=== PATIENT | female | born 2005 | race Two or more races ===

== ENCOUNTER 2024-11-06 20:43 | Emergency (ER) | payer OTHER, BC, SELFPAY ==
[2024-11-06 20:44] VITALS: BMI 20.5
[2024-11-06 21:13] VITALS: BP 95/76; PULSE 70; RESP 18; TEMP 36.6; O2SAT 98
--- NOTE | 2024-11-06 21:36 | EDNOTE_ITS ---
<Statement entered by Lesli Razo MD - 11/07/24 03:22> As co-signing physician, I was present and available for consult prn. I concur with the plan and care as documented by the midlevel provider. Lower Extremity Injury RME/HPI General Chief Complaint: Extremity Injury, Lower Stated Complaint: LEFT TOE PAIN, POSS INGROWN TOE NAIL Time Seen by Provider: 11/06/24 20:56 Arrival date/time: 11/06/24 20:43 RME / HPI RME / HPI Narrative: 18-year-old female patient came in for evaluation regarding left second toe redness. Patient is having worsening redness and tenderness to the tip of the left second toe, was seen by PCP and was given Keflex for ingrown toenail. According to the patient is not working. Been taking it for few days. Patient also complained of on and off numbness and dusky discoloration of the stools especially with exposure to the cold temperature for several months. Denies any other complaints. No fever was noted patient is ambulatory. Related Data Previous Rx's ?Medication ?Instructions ?Recorded pentoxifylline 400 mg 400 mg PO TID #30 tabs 11/06/24 tablet,extended release sulfamethoxazole 800 1 tab PO BID #14 tabs 11/06/24 mg-trimethoprim 160 mg tablet (Bactrim DS) Allergies Allergy/AdvReac Type Severity Reaction Status Date / Time amoxicillin [From Augmentin] Allergy Mild Rash Verified 11/06/24 20:46 clavulanic acid Allergy Mild Rash Verified 11/06/24 20:46 [From Augmentin] Review of Systems Review of Systems Narrative Review of Systems: Review of system reviewed and within normal limits except mentioned in HPI ED Exam Narrative Physical exam: VITAL SIGNS: Reviewed. GENERAL APPEARANCE: Alert and interactive, follows commands, no acute distress, HEAD AND FACE: Non-traumatic. ENT: PERRL, pink conjunctivitis, eyelid no trauma, Mucous membrane moist. NECK: Supple, nontender, no nuchal rigidity. RECTAL: Deferred. GENITAL: Deferred. NEUROLOGICAL: Gross motor function intact sensory function intact, Appropriate for age. MUSCULOSKELETAL: low back nontender, full range of motion. EXTREMITIES: Redness, ingrown toenail, right second toe.no cyanosis noted, full range of motion. SKIN: Color pink, dry, no rash, no lacerations, no abrasions, no contusions. LYMPHATICS: Deferred. Course Quality Measures none Orders Category Date Time Status Trimethoprim/Sulfa 160/800 Ds [Bactrim Ds] Med 11/06/24 21:32 Discontinued 1 tab PO X1 ONE Vital Signs Vital signs: Vital Signs Temperature 98 F 11/06/24 21:13 Pulse Rate 70 11/06/24 21:13 Respiratory Rate 18 11/06/24 21:13 Blood Pressure 95/76 11/06/24 21:13 Pulse Oximetry (%) 98 11/06/24 21:13 Oxygen Delivery Method Room Air 11/06/24 21:13 Extremity Injury, Lower MDM Narrative MDM Narrative:: 18-year-old female patient came in for evaluation regarding left second toe redness. Patient is having worsening redness and tenderness to the tip of the left second toe, was seen by PCP and was given Keflex for ingrown toenail. According to the patient is not working. Been taking it for few days. Patient also complained of on and off numbness and dusky discoloration of the stools especially with exposure to the cold temperature for several months. Denies any other complaints. No fever was noted patient is ambulatory. Patient is probably having Raynaud's disease. Patient was advised to follow-up with vascular surgeon. Patient was also given Bactrim. Patient was advised to avoid exposure to cold temperature, and wear thick socks and warm socks.. Patient appears nontoxic and hemodynamically stable. Patient discharged home and instructed to follow-up with primary care provider in 24 to 48 hours. Instructed to return to the emergency department immediately if worsening of symptoms Patient data External records reviewed:: None Clinical information provided by:: patient Social determinants that could affect healthcare access:: none Patient has the following chronic illnesses:: None How is presenting disease/condition affected by chronic disease/condition?: no chronic disease Evaluation data The following diagnostics were reviewed and interpreted by me:: other (specify) (None) Lab and/or radiology exams considered but not ordered:: None none Interpretation Summary: None Medications / Prescriptions Medications or Prescriptions considered but not ordered:: None Medication administrations:: Medication Administration History Discontinued Medications Trimethoprim/Sulfamethoxazole (Trimethoprim/Sulfa 160/800 Ds Tablet) 1 tab PO X1 ONE Stop: 11/06/24 21:33 Bactrim Consultations Consultation(s) initiated? (list below): No Diagnosis Extremity Injury, Lower Differential Diagnosis: fracture of toe (Infected ingrown toenail, Raynaud's disease, cellulitis) Most likely diagnosis given after review of the tests above:: Infected ingrown toenail, Raynaud's disease Admission Indicated Admission indicated?: not indicated Explain why admission is indicated or not indicated:: Stable Admission Request Was there a request for admission?: No Disposition Plan Disposition Plan: Discharge Discharge Attestation Discharge Attestation: The patient and all family members were given an opportunity to ask questions and understood the discharge instructions. Discharge instructions specifically effects, indications for sooner follow up or return to the emergency department, and the expected course of current diagnosis. Patient condition: Stable Discharge Plan Plan Patient Disposition: HOME (Self Care) Disposition Comment: Stable Prescriptions/Referrals Prescriptions/Med Rec: New sulfamethoxazole-trimethoprim [Bactrim DS] 800-160 mg tablet 1 tab PO BID Qty: 14 0RF pentoxifylline 400 mg tablet extended release 400 mg PO TID Qty: 30 0RF Rx Instructions: must administer with a meal/food Problem List Clinical Impression: Ingrown toenail with infection, Raynaud's syndrome Patient/Caregiver Discharge Instructions Discharge Activity: activity as tolerated Education Materials: Raynaud Disease Additional Instructions: Thank you for the opportunity for serving you today. You are stable for discharged . You are advised to: Follow-up with your PCP in 1 to 2 days unless your PCP to refer you to a vascular surgeon Return to ED for worsening of symptoms Increase oral fluids Take medication as prescribed Daily dressing with bacitracin as needed Print Language: Swedish Stand Alone Forms: Karen Award Info., Patient Portal Info Letter MELVINA/SANTIAGO Supervising Physician MELVINA/SANTIAGO Supervising Physician: MD Dung
[2024-11-06] MEDS: TRIMETHOPRIM/SULFA 160/800 DS TABLET 1 TAB PO (21:37)
== END 2024-11-06 21:40 | disposition home or self-care (01) ==
PROVIDERS: Emergency Provider Emergency Medicine
DX: L60.0 Ingrowing nail (principal); I73.00 Raynaud's syndrome without gangrene
CPT/HCPCS: 99281; A9270

== ENCOUNTER → 2024-11-15 | Outpatient (CLI) | payer OTHER, BC, SELFPAY ==
[2024-11-18 07:03] LABS: PTT-LA Screen 32 seconds (< OR = 40); dRVVT Screen 30 seconds (< OR = 45)
== END | disposition home or self-care (01) ==
LOC: COPL 09:21
PROVIDERS: PCP Physician Assistant; Referring Provider Physician Assistant; Visit Provider Physician Assistant
DX: I73.00 Raynaud's syndrome without gangrene (principal)
CPT/HCPCS: 36415; 85613; 85730

== ENCOUNTER 2025-03-08 08:43 | Outpatient (AMB) | payer OTHER, BC, SELFPAY ==
[2025-03-08 09:05] VITALS: BP 94/62; PULSE 67; RESP 14; TEMP 36.4; O2SAT 98; BMI 19.4
--- NOTE | 2025-03-08 09:05 | AMB.GYNCLNOT ---
Vital Signs 03/08/25 09:05 Height 1.63 m Height Method Stated Weight 51.426 kg Weight Measurement Method Standing Scale BMI 19.4 BP 94/62 Blood Pressure Source Automatic Cuff Blood Pressure Location Left Upper Arm Position Sitting Respiration 14 Pulse 67 Pulse Source Monitor Temp 97.5 F Temp Source Oral Pulse Oximetry (%) 98 Oxygen Delivery Method Room Air Allergies/Home Meds Allergies & Medications Allergies amoxicillin (From Augmentin) Allergy (Mild, Verified 03/08/25 09:06) Rash clavulanic acid (From Augmentin) Allergy (Mild, Verified 03/08/25 09:06) Rash Medication Reconciliation aspirin 81 mg tablet 81 mg PO QDAY 03/08/25 [History Confirmed 03/08/25] medroxyprogesterone 10 mg tablet (Provera) 10 mg PO QDAY 10 days #10 tabs 03/08/25 [Rx] Intake Visit Data Collection New Patient or Established: Established Patient (seen at [facility] within 3 years) Reason for Visit:: IRREGULAR MENSTRUAL PERIOD Seen by Clinical Staff ONLY (RN/MA): No Bow Stapler Required: No Do You Feel Safe at Home: Yes Authorities Contacted: N/A PCP or OBGYN visit in last 3 months: Yes Hx Now: No Are you currently on any form of Control: No Last menstrual period: 10/13/24 Pain Present Currently: No Pain Scale Used: Cheung-Guthrie/Numerical Pain scale:: 0 Smoking Status Smoking Status: Never smoker 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 She denies any chronic medical problems except for Raynaud's disease. 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 1. Little interest or pleasure in doing things: not at all 2. Feeling down, depressed, or hopeless: not at all Total score: 0 PHQ-9 3. Trouble falling or staying asleep, or sleeping too much: Not at all 4. Feeling tired or having little energy: Not at all 5. Poor appetite or overeating: Not at all 6. Feeling bad about yourself - or that you are a failure or have let yourself or your family down: Not at all 7. Trouble concentrating on things, such as reading the newspaper or watching television: Not at all 8. Moving or speaking so slowly that other people could have noticed? - Or the opposite - being so fidgety or restless that you have been moving around a lot more than usual: not at all 9. Thoughts that you would be better off or of hurting yourself in some way: Not at all Total score: 0 Source: Developed by Drs. Christ Shelby, Lilliam Guillory, Fletcher Mckeon and colleagues, with an educational candy from [employer] Depression screen completed yes Social History Living Situation History Marital Status: Single Lives With: Family Housing: House Housing Other:: Patient's mother is present. 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 She started her cycles at age 12 and they have always been regular. For the past 5 months she has not had a regular cycle. The patient's mother states that she has been diagnosed recently with Raynaud's syndrome and was seeing a rn lactation in [place]. They put her on 2 different blood pressure medications to help with her Raynaud's cycle. One was amlodipine and one was nifedipine. Both caused her dizziness and dropped her blood pressure. She is off both of these now and is only on an 81 mg baby aspirin p.o. daily. Patient is extremely active with exercise and is purposely dieting. In front of her mother she denied any eating disorder specifically no bulimia, anorexia or abuse of laxatives. Patient denies any pelvic pain. She has had no workup for her recent lack of menses. Nobody has tried hormones or placing her on progesterone to see if she withdraws. 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 Of note her mother is wearing scrubs from [employer] and works in the medical field. I did nice discussion with both the mother and the patient after examining her about causes of secondary amenorrhea. We will check a thyroid, test, and LH FSH ratio to rule out PCOS, and FSH and estradiol to rule out premature ovarian failure. Will also check a prolactin to rule out a prolactinoma. Will check a pelvic ultrasound to ensure pelvic anatomy is normal as this has not been done. Then the plan would be to withdraw her on progesterone to see if she has a cycle. I reassured both the mother and the patient this is likely runners amenorrhea meaning the patient does not have a large amount of body fat and is probably not cycling due to the fact that she is exercising so much. I reassured the patient and her mother this is common in extreme athletes such as runners and gymnasts. The patient and mother seem reassured. The patient does not want to get at this time. I did suggest after withdrawing if she does not have regular cycles we could put her on low-dose control or withdrawal her every 3 to 4 months. Will call her for follow-up once her labs and ultrasound are back. Review of Systems Review of Systems Narrative Review of Systems: Patient denies pelvic pain, abnormal discharge. She states she has not had menses for 5 months. She denies hot flashes night sweats. She denies any extra hair growth. She denies headaches or double vision. She denies galactorrhea. She does admit to a lot of exercise, both cardio and weightlifting. She has purposely lost weight over the last few months. Through diet and exercise. Exam Narrative Physical exam: Patient is extremely fit and she has good color. She appears muscular with very little body fat present. No acne or hirsute features. General Limitations: no limitations General Appearance: alert, in no apparent distress, comfortable, cooperative, healthy appearing, well developed and well groomed Neck Neck exam: Present normal inspection, full ROM and trachea midline Chest Chest inspection: Present normal inspection and symmetric chest wall rise Resp Respiratory exam: Present normal lung sounds bilaterally Card Cardiovascular exam: Present regular rate, normal rhythm and normal heart sounds Abdominal Abdominal exam: Present soft and normal bowel sounds Extremities Extremities exam: Present normal inspection and full ROM Psych Psychiatric exam: Present normal affect and normal mood Skin Skin exam: Present warm, dry, intact and normal color Office Procedures OB Clinic LOC & Office Proc's Nursing/Assessment Patient Status: Established Patient OB Clinic Nursing Assessment: Medication Reconciliation, Update PMH in EMR and Vital Signs OB Clinic Coordination of Care: Complex Care and Chronic Disease 1-5, Consent,records obtained, informed consent, Education Simp Pt/Fam, Lab and Imaging orders, Results/Orders obtained and Staff clarify orders Established Patient Charge Established Patient Point Assignment: 105 Established Patient Point Charge: EP Level 3 (80-115) Assessment & Plan Diagnosis / Problem List (1) Secondary amenorrhea: Status: Acute Assessment and Plan: Check test ,prolactin ,LH ,FSH ,estradiol and thyroid functions. Check pelvic ultrasound. Withdraw on progesterone. Likely runners amenorrhea. (2) Raynaud disease: Status: Acute Qualifiers: Raynaud?s-associated gangrene presence: without gangrene Qualified Code(s): I73.00 - Raynaud's syndrome without gangrene Assessment and Plan: Follow-up with rheumatology.
== END 2025-03-08 10:09 | disposition home or self-care (01) ==
LOC: HODSOBC 08:43
PROVIDERS: PCP Physician Assistant; Referring Provider Physician Assistant; Supervising Provider Obstetrics & Gynecology; Visit Provider Obstetrics & Gynecology
DX: N91.1 Secondary amenorrhea (principal); I73.00 Raynaud's syndrome without gangrene; Z88.1 Allergy status to other antibiotic agents; Z88.0 Allergy status to penicillin; Z79.82 Long term (current) use of aspirin
CPT/HCPCS: 99213; G0463

== ENCOUNTER → 2025-03-11 | Outpatient (CLI) | payer OTHER, BC, SELFPAY ==
[2025-03-11 10:21] LABS: Basophils % (Auto) 1 % (0-2.5); Eosinophils # (Auto) 0.1 Thou/mm3 (0.0-0.5); Eosinophils % (Auto) 2 % (0-10); Hemoglobin 14.3 g/dL (12.0-16.0); Immature Granulocytes % (Auto) 0 % (0-0); Lymphocytes # (Auto) 1.3 Thou/mm3 (1.0-4.8); Lymphocytes % (Auto) 40 % (10-50); Mean Corpuscular HGB Conc 34.9 g/dl (31.0-37.0); Mean Corpuscular Hemoglobin 33.5 pg (25.0-35.0); Mean Corpuscular Volume 96 fL (80-100); Monocytes # (Auto) 0.2 Thou/mm3 (0.0-0.8); Monocytes % (Auto) 7 % (0-12); Neutrophils # (Auto) 1.6 Thou/mm3 (1.8-7.7); Neutrophils % (Auto) 50 % (37-80); Nucleated Red Blood Cell % 0 /100 WBC (0); Platelet Count 220 Thou/mm3 (140-440); RDW Standard Deviation 42.2 fL (36.4-46.3); Red Blood Count 4.27 Miln/mm3 (4.00-5.20); White Blood Count 3.2 Thou/mm3 (4.5-11.0)
[2025-03-11 10:40] LABS: Free T3 2.4 pg/mL (3.0-4.7); Free T4 (Free Thyroxine) 1.08 ng/dL (0.89-1.76); Thyroid Stimulating Hormone 2.21 uIU/mL (0.55-4.78)
[2025-03-11 10:46] LABS: Follicle Stimulating Hormone 10.84 mIU/mL (See Note)
[2025-03-28 07:09] LABS: Estradiol, Free 0.21 pg/mL; Estradiol, Total 11 pg/mL; Luteinizing Hormone* 6.2 mIU/mL; Prolactin* 5.2 ng/mL; Thyroid Peroxidase Antibodies* <1 IU/mL (<9)
== END | disposition home or self-care (01) ==
LOC: COPL 09:35
PROVIDERS: PCP Physician Assistant; Referring Provider Obstetrics & Gynecology; Visit Provider Obstetrics & Gynecology
DX: N91.1 Secondary amenorrhea (principal)
CPT/HCPCS: 36415; 82670; 82681; 83001; 83002; 84146; 84439; 84443; 84481; 85025; 86376

== ENCOUNTER → 2025-03-15 | Outpatient (CLI) | payer OTHER, BC, SELFPAY ==
--- NOTE | 2025-03-15 11:30 | XR_ITS ---
Examination: Pelvic ultrasound, transabdominal, complete Technique: Transabdominal ultrasound of the pelvis performed using grayscale imaging Date and time of exam: March 15, 2025 1139 hours INDICATIONS: Amenorrhea 6 months FINDINGS: Uterus 5.1 cm endometrial stripe 1.0 cm No uterine mass or intrauterine gestation Right ovary 3.2 cm arterial flow small follicles Left ovary 2.4 cm arterial flow IMPRESSION: Negative examination
== END | disposition home or self-care (01) ==
PROVIDERS: PCP Physician Assistant; Referring Provider Obstetrics & Gynecology; Visit Provider Obstetrics & Gynecology
DX: N91.1 Secondary amenorrhea (principal)
CPT/HCPCS: 76856

== ENCOUNTER 2025-04-12 14:29 | Outpatient (AMB) | payer OTHER, BC, SELFPAY ==
[2025-04-12 15:19] VITALS: BP 101/62; PULSE 73; RESP 17; TEMP 36.4; O2SAT 99; BMI 19.8
--- NOTE | 2025-04-12 15:19 | AMB.GYNCLNOT ---
Vital Signs 04/12/25 15:19 Height 1.63 m Height Method Measured Weight 52.277 kg Weight Measurement Method Standing Scale BMI 19.8 BP 101/62 Blood Pressure Source Automatic Cuff Blood Pressure Location Right Upper Arm Position Sitting Respiration 17 Pulse 73 Pulse Source Monitor Temp 97.6 F Temp Source Temporal Artery Scan Pulse Oximetry (%) 99 Oxygen Delivery Method Room Air Allergies/Home Meds Allergies & Medications Allergies amoxicillin (From Augmentin) Allergy (Mild, Verified 04/12/25 15:20) Rash clavulanic acid (From Augmentin) Allergy (Mild, Verified 04/12/25 15:20) Rash Intake Visit Data Collection New Patient or Established: Established Patient (seen at [facility] within 3 years) Reason for Visit:: LAB RESULTS\SONO Consent obtained for Telemed Visit: No Seen by Clinical Staff ONLY (RN/MA): No Wire Communications Engineer Required: No Do You Feel Safe at Home: Yes Authorities Contacted: N/A PCP or OBGYN visit in last 3 months: Yes Date of Last PCP or OBGYN visit: 03/08/25 Hx Now: No Are you currently on any form of Control: No Last menstrual period: 10/13/24 Pain Present Currently: No Pain Scale Used: Cheung-Guthrie/Numerical Pain scale:: 0 Smoking Status Smoking Status: Never smoker 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 1. Little interest or pleasure in doing things: not at all 2. Feeling down, depressed, or hopeless: not at all Total score: 0 PHQ-9 3. Trouble falling or staying asleep, or sleeping too much: Not at all 4. Feeling tired or having little energy: Not at all 5. Poor appetite or overeating: Not at all 6. Feeling bad about yourself - or that you are a failure or have let yourself or your family down: Not at all 7. Trouble concentrating on things, such as reading the newspaper or watching television: Not at all 8. Moving or speaking so slowly that other people could have noticed? - Or the opposite - being so fidgety or restless that you have been moving around a lot more than usual: not at all 9. Thoughts that you would be better off or of hurting yourself in some way: Not at all Total score: 0 If you checked off any problems, how difficult have these problems made it for you to do your work, take care of things at home, or get along with other people?: not difficult at all Source: Developed by Drs. Christ Shelby, Lilliam Guillory, Fletcher Mckeon and colleagues, with an educational candy from [employer]. Depression screen completed yes Social History Living Situation History Lives With: Family Housing: House Housing Other:: Patient's mother is present. 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 Patient has stopped having cycles for the last 6 to 7 months. She is however been exercising quite a bit and lost about 10 pounds. Her BMI is now 19.8. All labs were checked including a thyroid which is normal , a FSH is normal, LH is normal with no suggestion of PCOS based on LH /FSH ratio. Prolactin is normal. Estradiol is normal. Ultrasound is normal. I offered the patient low-dose control pills versus withdrawing on medroxyprogesterone. Patient states she would rather withdraw on Provera. I explained runners amenorrhea and the fact that patient is quite lean with a large muscle mass and very little body fat. A lot of times this causes her to stop her cycles. I explained this happens all the time with female athletes that are extreme athletes such as marathon runners gymnasts or other athletes. I reassured the patient and her mother when it is time she should be able to get . I suggested control pills but again they both decline. Results Objective Laboratory: All labs are reviewed drawn at [facility] and are normal Imaging: Pelvic ultrasound done at [facility] is normal Office Procedures OB Clinic LOC & Office Proc's Nursing/Assessment Patient Status: Established Patient OB Clinic Nursing Assessment: Medication Reconciliation, Update PMH in EMR and Vital Signs OB Clinic Coordination of Care: Complex Care and Chronic Disease 1-5, Consent,records obtained, informed consent, Lab and Imaging orders and Staff clarify orders Established Patient Charge Established Patient Point Assignment: 85 Established Patient Point Charge: EP Level 3 (80-115) Assessment & Plan Diagnosis / Problem List (1) Secondary amenorrhea: Status: Acute Assessment and Plan: Likely secondary to runners amenorrhea. All lab work is normal including thyroid prolactin. PCOS is pretty much ruled out based on exam and lab work and ultrasound. Recommend control pills or withdrawing with Provera every 4 months. Patient and her mother opt for withdrawing with Provera every 4 months. Patient states she is not sexually active in front of her mother. test was negative. Recommend following up yearly or as needed. Recommend control pills if patient does become sexually active. All questions were answered for patient and her mother. Additional Plan Follow Up: 1 Year
== END 2025-04-12 16:10 | disposition home or self-care (01) ==
LOC: HODSOBC 14:29
PROVIDERS: PCP Physician Assistant; Referring Provider Physician Assistant; Supervising Provider Obstetrics & Gynecology; Visit Provider Obstetrics & Gynecology
DX: N91.1 Secondary amenorrhea (principal)
CPT/HCPCS: 99213; G0463